=== PATIENT | male | born 1965 | race Caucasian/White ===

== ENCOUNTER 2024-03-09 21:55 | Emergency (ER) | payer OTHER ==
[~2024-03-09 21:55] MED LIST: Iopamidol 370 76% 100 ML VIAL ONE
[2024-03-09] MEDS ORDERED: methylPREDNISolone Sod Succ/PF 125 MG/2 ML VIAL ONE (22:09)
[2024-03-09] MEDS ORDERED: Magnesium 2 GM/50 ML BAG (IN WATER) ONE (22:09)
[2024-03-09 22:48] LABS: INR-International Normal Ratio 1.1; PTT 32.3 sec (22.0-33.0); Prothrombin Time 12.1 sec (9.5-12.1)
[2024-03-09] MEDS ORDERED: Ipratropium/Albuterol 3 ML NEB ONE (22:49)
[2024-03-09] MEDS ORDERED: Piperacillin/Tazobactam 3.375 GM VIAL ONE (22:51)
[2024-03-09 22:52] LABS: Analyzer IN Cardio CS ER; Base Excess (BEa) 0.5 mEq/L (-2.0 to +3.0); Calcium, Ionized (arterial) 1.12 mmol/L (1.12-1.30); Carboxyhemoglobin (COHb) 0.3 gm% (0.0-3.0); Hematocrit-ABG 40 % (42.0-52.0); Hemoglobin (Hb) 13.5 g/dL (14.0-18.0); O2 Tension (PaO2), arterial 68.8 mmHg (80.0-100.0); Potassium - ABG Lab 4.09 mmol/L (3.70-5.30); Puncture Site Right Radial artery; pH, Arterial 7.488 (7.35-7.45)
[2024-03-09 22:53] LABS: ALT (SGPT) 18 U/L (8-55); AST (SGOT) 19 U/L (5-34); Albumin 2.6 g/dL (3.5-5.0); Alkaline Phosphatase 101 U/L (40-110); Anion Gap 18 mmol/L (10-20); BUN (Urea Nitrogen) 13 mg/dL (8.4-25.7); Bilirubin, Total 0.7 mg/dL (0.2-1.2); Calc. Creatinine Clearance 0 mL/min (70-130); Carbon Dioxide 25 mmol/L (22-29); Chloride 82 mmol/L (98-107); Estimated GFR 107; Globulin 3.4 g/dL (2.4-3.5); Glucose 112 mg/dL (70-105); Lipase 4 U/L (8-78); Magnesium 1.7 mg/dL (1.6-2.6); Potassium 4.2 mmol/L (3.5-5.1); Sodium 121 mmol/L (136-145)
[2024-03-09 22:55] LABS: Troponin I Less than 0.010 ng/mL (< 0.028)
[2024-03-09 23:09] LABS: Band 7 % (5-11); Lymphocytes 2 % (21-51); MDiff Complete? YES; Metamyelocyte 1 % (0-0); Monocytes 4 % (0-10); Myelocyte 1 % (0-0); Neutrophil 86 % (42-75); Platelet Adequacy Comment Appears Adequate; Reactive Lymphocytes 1 % (0-10); Toxic Granulation SLIGHT; Vacuoles SLIGHT
[2024-03-09 23:10] LABS: Hematocrit 37.8 % (38.8-50.0); Hemoglobin 13.1 g/dL (13.5-17.5); Mean Corpuscular HGB CONC 34.7 g/dL (32.0-36.0); Mean Corpuscular Hemoglobin 31.2 pg (27.0-33.0); Mean Platelet Volume 8.9 fL (7.4-10.4); Platelet Count 419 10x3/uL (150-450); RBC Distribution Width 12.3 % (11.5-14.5); White Blood Cell (WBC) Count 55.56 10x3/uL (3.5-10.5)
[2024-03-09 23:12] LABS: Reflex for Review?? YES
[2024-03-09 23:13] LABS: RBC Morph Comment Within Normal Limits
[2024-03-09] MEDS ORDERED: Lorazepam 2 MG/ML VIAL ONE (23:49)
[2024-03-10] MEDS ORDERED: Furosemide 40 MG (4 mL) VIAL ONE (00:40)
[2024-03-10] MEDS ORDERED: Azithromycin 500 MG VIAL ONE (01:21)
[2024-03-10] MEDS ORDERED: ADMIXTURE FEE IVPB SCH (01:45)
[2024-03-10] MEDS ORDERED: VANCOMYCIN IVPB SCH (01:45)
== END 2024-03-10 02:50 | disposition short-term general hospital (02) ==
LOC: CSHERS 21:55
DX: J18.9 Pneumonia, unspecified organism (principal); E87.1 Hypo-osmolality and hyponatremia; J90 Pleural effusion, not elsewhere classified; R06.03 Acute respiratory distress; J98.4 Other disorders of lung; I10 Essential (primary) hypertension; E78.5 Hyperlipidemia, unspecified; Z79.899 Other long term (current) drug therapy
CPT/HCPCS: 36415; 36600; 71275; 80053; 82805; 83605; 83690; 83735; 83880; 84145; 84443; 84484; 85025; 85060; 85610; 85730; 87040; 93005; 94640; 94660; 94760; 96365; 96367; 96375; J0456; J1940; J2060; J2543; J2919; J3370; J3475; J7620; Q9967